=== PATIENT | male | born 1990 | race Caucasian/White ===

== ENCOUNTER 2019-12-22 09:16 | Inpatient (IN) | payer OTHER ==
[~2019-12-22] VITALS: Ht 177.8 cm; Wt 63.7 kg
[2019-12-22 09:22] VITALS: BP 152/108
[2019-12-22 09:47] LABS: HEMATOCRIT 44.7 % (42.0-52.0); HEMOGLOBIN 15.7 gm/dL (14.0-18.0); MCH 31.6 pg (26.0-34.0); MCHC 35.1 g/dL (28.0-37.0); MCV 90.1 fL (80.0-100.0); PLATELET COUNT 196 thou/uL (150-400); RBC 4.97 mil/uL (4.50-6.00); RDW 12.6 % (10.5-14.5)
[2019-12-22 10:23] LABS: ANION GAP 12 mmol/L (7-16); BUN 19 mg/dL (7-18); CALCIUM 9.1 mg/dL (8.5-10.1); CHLORIDE 102 mmol/L (98-107); CO2 26 mmol/L (21-32); GLUCOSE 103 mg/dL (74-106); POTASSIUM 4.2 mmol/L (3.5-5.1); SODIUM 140 mmol/L (136-145)
[2019-12-22 10:31] LABS: TROPONIN-I <0.06 ng/mL (<0.06)
[2019-12-22 13:09] LABS: ABSOLUTE NEUTROPHILS 2.8 thou/uL (1.4-8.2)
[2019-12-22 14:30] VITALS: BP 152/108
--- NOTE | 2019-12-22 14:49 | NUR ---
ATTEMPTED TO CALL REPORT, DANIEL STATES SHE DOES NOT HAVE AVAILABLE NURSES AND WILL CB TO GET REPORT ON PT
[2019-12-22 14:52] VITALS: BP 130/91
--- NOTE | 2019-12-22 15:18 | NUR ---
CALLED TO GIVE REPORT AGAIN SINCE NO CB. KATY RAYMOND STATES SHE CANT TAKE REPORT BECAUSE SHE IS AT [place]UN[place] AND WILL HAVE TO CB IN 30 MINUTES. KATY RAWLS ADVISED ME TO JUST "TAKE PT. OVER AND GIVE BESIDE REPORT"
[2019-12-22 15:44] VITALS: BP 146/90
--- NOTE | 2019-12-22 18:41 | NUR ---
ASSUMMED PT CARE AT APPROXIMATELY 1545. PT A&O X4. ASSESSMENT CHARTED. FALL PRECAUTIONS IN PLACE. PT DENIES HAVING CHEST PAIN. PT DENIES HAVING SOB. PT STATED HE HAD PAIN AROUND CHEST TUBE AREA. PT RECEIVED ANALGESICS. PT STATED ANALGESICS HELPED RELIEVE PAIN. EDUCATED PT AND PT'S FAMILY ABOUT POC. PT AND PT'S FAMILY STATED UNDERSTANDING AND DENIED HAVING FURTHER CONCERNS. R CHEST TUBE INSERTION DRESSING C/D/I. PT COMFORTABLE IN BED. PT DENIES HAVING FURTHER CONCERNS.
[2019-12-22 19:46] VITALS: BP 141/87
[2019-12-22 23:38] VITALS: BP 123/77
[2019-12-23] VITALS (7 sets, daily range): BP systolic 123–151; BP diastolic 75–105
--- NOTE | 2019-12-23 05:20 | NUR ---
ASSUMED PT CARE AT AROUND 1930, PT IS AWAKE, ALERT AND ORIENTEDX4, SR/SB ON THE MONITOR, DENIES CHEST PAIN OR SOB, C/O PAIN ON THE CHEST TUBE INSERTION SITE, PAIN MEDS GIVEN ORDERED, STATED PARTIAL RELIEF, CHEST TUBE SITE CDI, STATES BREATHING BETTER, ASSESSMENTS CHARTED, NO ISSUES OR ACUTE DISTRESS NOTED, WILL CONTINUE TO MONITOR
--- NOTE | 2019-12-23 07:55 | EKG ---
[facility] [place] [address] [address] ELECTROCARDIOGRAM REPORT Name: CHAD GARCIA Room #: 211-P ADM IN M.R.#: [id number] Admission: 12/22/19 Attend Phys: Rito Brambila Discharge: Date of : 89 Report #: [id number] THIS REPORT FOR: cc: CLARA - No family physician/PCP FAM - No family physician/PCP Gui Zapata MD [facility] ~ THIS REPORT FOR: //name// [facility] ED Test Date: 2019-12-22 Test Time: 09:23:40 Pat Name: CHAD GARCIA Department: Room: 211 Gender: M Vp Rheumatology: JUS GARCIA : 1990 Requested By: Rossana Marquez Order Number: [id number] MD: Gui Zapata Measurements Intervals [place] Rate: 77 P: 86 NH: 128 QRS: 88 QRSD: 89 T: 78 QT: 364 QTc: 412 Interpretive Statements Sinus rhythm Normal tracing No previous ECG available for comparison Electronically Signed On 12-23-2019 7:55:31 CDT by Gui Zapata [email or web address] <ELECTRONICALLY SIGNED> By: Gui Zapata MD, FACC 12/23/19 0755 0923 Gui Zapata MD, [facility] /EPI
--- NOTE | 2019-12-23 08:47 | NUR ---
ASSUMED CARE OF PT AT SHIFT CHANGE, CXR DONE THIS A.M. PT IS A&0X4, SBA, ENCOURAGED TO CONTINUE TO DO DEEP SLOW BREATHING IN SPITE OF PAIN, WILL CONTINUE TO MONITOR, ENCOURAGED TO USE CALL LIGHT FOR ANY NEEDS. USES URINAL FOR CONVENIENCE. WILL CONTINUE TO MONITOR
--- NOTE | 2019-12-23 10:37 | NUR ---
Chart reviewed and case discussed with the care team. Pt was indep and working prior to admission. Pt works for a [employer]. He has insurance on file for f/u care. He lives with his and children. No cm interventions indicated at this time. Pt is being treated for a pneumothorax and has a chest tube in place. Will remain available should dc needs arise.
[2019-12-24 05:06] VITALS: BP 145/88
--- NOTE | 2019-12-24 07:37 | NUR ---
ASSUMED PT CARE AT 1900, PT IS AWAKE, ALERT AND ORIENTED, SB ON THE MONITOR, CHEST TUBE SITE CDI, DENIES SOA OR CHEST PAIN, NO ACUTE DISTRESS NOTED, PASSED ON REPORT TO DAY NURSE
[2019-12-24 08:10] VITALS: BP 145/95
--- NOTE | 2019-12-24 08:43 | NUR ---
ASSUMED CARE OF PT AT SHIFT CHANGE; ONLY CONCERN AT THIS TIME IS PAIN CONTROL, HAD JONES OVERNIGHT, REMINDED OF PAIN MEDS SIDE EFFECTS, ASKED FOR TYLENOL. ANTICIPATING SPOUSE TO VISIT AGAIN. CT SITE REMAINS INTACT AND ASPIRATING CONTENTS, SAME AMT, BLOOD TINGED (PHYSICIANS AWARE), SEE SEPARATE INTERENTIONS FOR ASSESSMENTS, ENCOURAGED PT AND, LATER, HIS SPOUSE TO USE CALL LIGHT FOR ANY NEEDS
[2019-12-24 16:00] VITALS: BP 127/68
[2019-12-24 20:00] VITALS: BP 139/92
[2019-12-25 02:55] VITALS: BP 119/79
--- NOTE | 2019-12-25 03:57 | NUR ---
ASSUMED PT CARE AT AROUND 1900, PT IS AWAKE, ALERT AND ORIENTEDX4, SR ON THE MONITOR, ASESSMENTS CHARTED, CHEST TUBE SITE DRESSING REINFORCED, C/O PAIN ON HIS CHEST TUBE SITE, PAIN MEDICINE GIVEN WITH RELIEF, RESTED WELL THROUGH THE NIGHT, NO ACUTE DISTRESS NOTED, WILL CONTINUE TO MONITOR
[2019-12-25 08:15] VITALS: BP 132/83
--- NOTE | 2019-12-25 09:36 | NUR ---
ASSUMED CARE OF PT AT SHIFT CHANGE, A&0X4, AMB STEADY AND CLOSE TO BED D/T CHEST TUBE AND SYSTEM. PHYSICIAN ASKED TO ENSURE LINES TAPED CLOSE TO PT, SURGERY BEING CONSIDERED, CXR SHOWS LARGER AIR SPACE. ENCOURAGED PT TO USE CALL LIGHT FOR ANY NEEDS, NO OTHER NEEDS OTHER THAN PAIN CONTROL, DAILY BM. WILL CONTINUE TO MONITOR
[2019-12-25 11:30] VITALS: BP 126/92
[2019-12-25 15:45] VITALS: BP 132/83
[2019-12-25 19:50] VITALS: BP 134/89
--- NOTE | 2019-12-26 04:53 | NUR ---
ASSUMED CARE OF PATIENT AT 1900. AT ASSESSMENT PATIENT C/O PAIN AT CHEST TUBE INSERTION SITE. ADMINISTERED PRN MEDICATION ORDERED. PATIENT RESTED WELL THROUGH NOC. CHEST TUBE REMAINS IN PLACE. WILL CONTINUE TO MONITOR.
[2019-12-26 05:00] VITALS: BP 140/90
[2019-12-26 07:29] VITALS: BP 128/90
[2019-12-26 11:03] VITALS: BP 142/89
[2019-12-26 15:13] VITALS: BP 130/79
--- NOTE | 2019-12-26 19:02 | NUR ---
PT ALERT AND ORIENTED TIMES FOUR. VSS, 100%RA. RIGHT SIDE CHEST TIBE IN PLACE PT C/O PAIN PRN PAIN MEDS GIVEN WITH GOOD RELEIF. PT TOLERATES MEDS AND MEALS. PT UP AB MIGUEL IN ROOM WITH STEADY GAIT. PT NPO AFTER MIDNIGHT FOR SURGERY TOMORROW. PT AT BEDSIDE. WILL CONTINUE TO MONITOR.
[2019-12-26 20:39] VITALS: BP 134/93
[2019-12-27] VITALS (9 sets, daily range): BP systolic 120–142; BP diastolic 60–88
--- NOTE | 2019-12-27 04:05 | NUR ---
PT ARRIVED ON UNIT FROM 2N AT 0000. CHEST TUBE INTACT. PLAN FOR THORACENTESIS 12/26. INDEPENDENT TO BATHROOM. DENIES PAIN. RESTING COMFORTABLY. NO NEEDS VOICED. CALL LIGHT WITHIN REACH. FREQUENT OBSERVATION.
--- NOTE | 2019-12-27 11:58 | NUR ---
ON-GOING ASSESSMENT: CM REVIEWED CHART. PATIENT STILL HAS CHEST TUBE IN PLACE. PT HAD BRONCHOSCOPY. PT IS NORMALLY INDEPENDENT AT HOME. CM WILL CONTINUE TO FOLLOW TO ASSIST NEEDED.
--- NOTE | 2019-12-27 19:37 | NUR ---
Assumed care of pt at 0700. Pt a&ox4. Underwent surgery. Post-op pt admission order for M/S tele. No tele beds available. supervisor general and provider aware. Capnography monitor in place. Fentanyl COMMUNITY COORDINATOR. Family at bedside. Chest tube in place and connecting to suction. Call light within reach. Pt will transfer to telemetry floor. Report given to dary BURNS.
--- NOTE | 2019-12-28 02:54 | NUR ---
ASSUMED PT CARE AT 1900.PT WAS IN A STABLE CONDITION.LEAD DATA ENTRY OPERATOR PUMP IN PLACE WITH CAPNOGRAPHY.CHEST TUBE CONNECTED TO SUCTION.DRSG TO HIS RIGHT SIDE INTACT. PT WAS TRANSFERED TO A TELEMETRY UNIT(RM 458) AT 2144 WITH ALL HIS PERSONAL BELONGINGS.
[2019-12-28 04:02] VITALS: BP 137/79
--- NOTE | 2019-12-28 04:52 | NUR ---
Pt. rested quietly at intervals during the night when checked on during frequent rounds. Chest tube patent to suction. No c/o shortness of air. Capnography in place. Fentanyl customer support manager providing adequate pain control.
[2019-12-28 05:34] LABS: HEMATOCRIT 42.7 % (42.0-52.0); MCH 31.7 pg (26.0-34.0); MCV 90.5 fL (80.0-100.0); RBC 4.72 mil/uL (4.50-6.00); RDW 12.4 % (10.5-14.5); WBC 10.6 thou/uL (4.0-11.0)
[2019-12-28 05:42] LABS: CALCIUM 9.2 mg/dL (8.5-10.1); CREATININE 0.8 mg/dL (0.7-1.3); POTASSIUM 4.8 mmol/L (3.5-5.1)
[2019-12-28 07:18] VITALS: BP 122/79
--- NOTE | 2019-12-28 16:06 | PATH ---
[facility] [place] [address] PATHOLOGY RPT PROCEDURE Name: CHAD GARCIA Rodger Room #: 456-P ADM IN M.R.#: [id number] Admission: 12/22/19 Date of : 89 Discharge: Report #: [id number] Path Case #: [id number] [facility] Accession Number: [id number] . 01 Material submitted: . PART A: lung - RIGHT LOWER LOBE SUPERIOR SEGMENT. Modifiers: right, lower PART B: lung - RIGHT UPPER LOBE APEX. Modifiers: right, upper . 01 Clinical history: . RIGHT PNEUMOTHORAX SPONTANEOUS PHEUMOTHROAX . 02 Diagnosis: A. Lung, right lower lobe superior segment, wedge resection: - Marked emphysematous changes along with hemorrhage, history of pneumothorax. - Pleural surface showing dense acute and chronic inflammation along with reactive changes. . B. Lung, right upper lobe apex, wedge resection: - Marked emphysematous changes along with hemorrhage, history of pneumothorax. - A 5 mm bleb present adjacent to congestion and hemorrhage. . (IUV:mml; 12/28/2019) QLM 12/28/2019 1332 Local . 02 Electronically signed: . Lashanda Alfred MD, Pathologist NPI- [id number] . 01 Gross description: . A. The specimen is received in formalin, labeled "Chad Garcia, right lower lobe superior segment". Received is a segment of pink-pavon lung tissue with a stapled margin of resection measuring 2.9 x 1.0 x 0.3 cm in greatest dimensions. The mariano are removed and the new margin is inked black. Sectioning reveals pink-pavon cut surfaces with a previously ruptured outpouching measuring 1.5 cm. The specimen is submitted entirely in cassette A1. . B. The specimen is received in formalin, labeled "Chad Garcia, right upper lobe apex". Received is a segment of pink-pavon lung tissue with a stapled margin of resection measuring 3.8 x 1.8 x 0.9 cm in greatest dimensions. The mariano are removed and the new margin is inked black. Sectioning reveals a cystic structure measuring 0.6 cm that is devoid of content. The remaining cut surfaces display a pink-pavon appearance. The specimen is submitted entirely in cassettes B1 [place] [address] PATHOLOGY RPT PROCEDURE Name: CHAD GARCIA Room #: 456-P ADM IN M.R.#: [id number] Admission: 12/22/19 Date of : 89 Discharge: Report #: [id number] Path Case #: [id number] (CAA; 12/27/2019) QAC/QAC 12/27/2019 1544 Local . 02 Pathologist provided ICD-10: R09.1, R04.89 . 02 CPT . 931027, 583995 Specimen Comment: A courtesy copy of this report has been sent to [phone] Specimen Comment: Report sent to Performed at: [address] [facility], [place] [id number] MD Kennedy Cuellar MD Phone: [phone] Performed at: [address] [id number] MD Lashanda Alfred MD Phone: [phone]
--- NOTE | 2019-12-28 18:23 | NUR ---
ASSUMED CARE AT 0700. PT IS ALERT AND ORIENTED. VSSA/1/2L O2. CAPNOGRAPHY AND TELE. CLAY PUDDLER PUMP INFUSING IN PIV. CHEST TUBE TO SUCTION. GI/ TOLERATING DIET. NO BM. ACCUCHECKS NORMAL. CLAY PUDDLER PUMP INFUSING IN PIV. EDUCATED TO CALL IF NEEDS ARISE. CALL LIGHT IN REACH. 1715- CHEST TUBE TO WATER SEAL. DC CLAY PUDDLER PUMP AND O2 CAPNOGRAPHY. NORCO GIVEN. WILL MONITOR
[2019-12-28 19:51] VITALS: BP 128/76
--- NOTE | 2019-12-29 06:00 | NUR ---
VSS-AFEBRILE. LUNGS CLEAR-DIMINSHED IN ALL VARELA BILATERALLY. CT TO WATER SEAL, SMALL AMOUNT OF BLOODY DRAINAGE FROM AROUND INSERTION SITE OF TUBE. PAIN WELL CONTROLLED WITH PO PAIN MEDICATIONS. CALLS APPROPRIATELY FOR ANY NEEDED ASSISTANCE.
[2019-12-29 07:26] VITALS: BP 112/69
--- NOTE | 2019-12-29 08:31 | NUR ---
Assumed patient care at 0715. Vital signs stable, LSCTA, ABD soft and non-tender, BS x's 4, Chest Tube is patent in right chest. Pain is controlled well with po Hydrocodone. Patient has a good appetite. He is pleasant and calm. Normal Saline is running at 50mL's per hour. Held blood pressure medication this am, as blood pressure was 112/69 at 0730. No Insulin needed, as Blood Sugar was 86 at 0820. Will continue to monitor.
--- NOTE | 2019-12-29 11:35 | NUR ---
Assess due to length of stay. Admit with spontaneous pneumothorax and has required chest tube placement. Pt voices appetite is good, often has outside foods brought in. No changes in wt. Low nutrition risk
[2019-12-29 15:09] VITALS: BP 124/77
[2019-12-29 20:15] VITALS: BP 137/89
--- NOTE | 2019-12-30 03:16 | NUR ---
VSS-AFEBRILE. C/O RIGHT POSTERIOR CHEST SORENESS THAT IS PARTIALLY RELIEVED WITH PO PAIN MEDICATION. EQUAL CHEST RISE, AND CLEAR LUNGS SOUNDS IN ALL LUNG VARELA BILATERALLY. OOB AD MIGUEL-STEADY ON FEET. REMAINS ON ROOM AIR WITH NO REPORTED SOA. CALLS APPROPRIATELY FOR ANY NEEDED ASSISTANCE.
[2019-12-30 07:38] VITALS: BP 133/89
--- NOTE | 2019-12-30 09:18 | NUR ---
Assumed patient care at 0715.Vital signs are stable, LSCTA, ABD soft and non-tender, BS x's 4. Patient's pain is partially controlled with Hydrocodone. Patient to Discharge this am. He verbalizes an understanding of all Discharge instructions.
[2019-12-30 09:23] VITALS: BP 133/89
--- NOTE | 2019-12-30 10:06 | NUR ---
cm notified by bedside nurse that pt is dc home today. home no needs.
[2019-12-30] MEDS ORDERED: AMLODIPINE BESY10 MG PO (10:23)
[2019-12-30] MEDS ORDERED: ACETAMINOPHEN325 M1 PO (10:23)
--- NOTE | 2019-12-30 15:47 | HC ---
[facility] [place] [address] [address] CONSULTATION Name: CHAD GARCIA Room #: 456-P [facility] IN M.R.#: [id number] Admission: 12/22/19 Attend Phys: Rito Brambila Discharge: 12/30/19 Date of : 89 Report #: [id number] THIS REPORT FOR: cc: CLARA - No family physician/PCP CLARA - No family physician/PCP Josue Jackson MD ~ CC: [facility] physician/PCP Rito Schulz DATE OF SERVICE: 12/24/2019 REFERRING PHYSICIAN: We were asked by Dr. Brambila to see this patient. HISTORY OF PRESENT ILLNESS: The patient is a 29-year-old with a spontaneous right pneumothorax. The patient was admitted on 12/22/2019 with acute onset of chest pain. The patient was found to have significant right pneumothorax and a catheter was placed by Radiology. There was reasonable resolution of the pneumothorax, but there has been a persistent air leak and our help has been requested. PAST MEDICAL HISTORY: The patient denies chronic disease. MEDICATIONS: The patient takes no medications at home. ALLERGIES: The patient denies allergies to any medication. SOCIAL HISTORY: The patient denies cigarette use, but he does dip snuff. He also does use alcohol. REVIEW OF SYSTEMS: CONSTITUTIONAL: Denies fever or chills. EYES: Denies vision problems. HEENT: Denies headache, sore throat. CARDIAC: Denies chest pain other than associated with the pneumothorax. RESPIRATORY: Denies shortness of breath other than associated with the pneumothorax. GASTROINTESTINAL: Denies nausea, vomiting, blood. GENITOURINARY: Denies urgency, frequency, blood. SKIN: Denies rash or infection. MUSCULOSKELETAL: Denies bone or joint pain. NEUROLOGIC: Denies motor or sensory dysfunction. ENDOCRINE: Denies goiter or tremor. PHYSICAL EXAMINATION: GENERAL: The patient is a thin, mildly asthenic, young man lying in bed without [facility] [address] [place] [address] CONSULTATION Name: CHAD GARCIA Room #: 456-P [facility] [id number] Admission: 12/22/19 Attend Phys: Rito Brambila Discharge: 12/30/19 Date of : 89 Report #: [id number] distress. VITAL SIGNS: Temperature 36.7, heart rate 64, respiratory rate 16, blood pressure 145/95. HEENT: No scleral icterus, no arcus. NECK: No mass, no bruit. CHEST: Clear bilaterally. HEART: Rhythm regular. ABDOMEN: Soft. EXTREMITIES: No clubbing, cyanosis, or edema. No evidence of bruising or bleeding. MUSCULOSKELETAL: No asymmetry or deformity. PSYCHIATRIC: Shows insight into problem and answers questions appropriately. He is oriented x 3. Chest tube is attached and there is air leak with cough. There is negative pressure indicating that the tube is indeed in the chest and there is no leak in the system, as far as I can ascertain. ASSESSMENT AND PLAN: I discussed a spontaneous pneumothorax with the patient. If the leak persists, then it likely requires surgical correction. Risks and details of a right video-assisted thoracoscopy were discussed. Options and alternatives were reviewed. We will try to arrange surgery for Friday if leak persists over the weekend. Thank you for the consult. <ELECTRONICALLY SIGNED> By: Josue Jackson MD 12/30/19 1547 1408 1447 Josue Jackson MD /nt
--- NOTE | 2019-12-30 15:47 | O ---
[facility] [address] [address] OPERATIVE REPORT Name: CHAD GARCIA Room #: 456-P [facility] IN M.R.#: [id number] Admission: 12/22/19 Attend Phys: Rito Brambila Discharge: 12/30/19 Date of : 89 Report #: [id number] THIS REPORT FOR: cc: CLARA - No family physician/PCP CLARA - No family physician/PCP Josue Jackson MD ~ CC: [facility] physician/PCP Rito Schulz DATE OF SERVICE: 12/27/2019 PREOPERATIVE DIAGNOSIS: Spontaneous pneumothorax with persistent air leak, clinically right. POSTOPERATIVE DIAGNOSIS: Spontaneous pneumothorax with persistent air leak, clinically right. OPERATION: Bronchoscopy, right video-assisted thoracoscopy, wedge resection of blebs x 2 and chemical pleurodesis. SURGEON: Josue Jackson MD. ANESTHESIA: General. INDICATIONS: The patient is a 29-year-old with spontaneous right pneumothorax treated with a chest tube. The patient has a persistent air leak despite good reexpansion of the lung. FINDINGS AND TECHNIQUE: After general anesthesia was established, flexible diagnostic bronchoscopy was performed. No endobronchial lesions were noted. A double lumen endotracheal tube was placed and the patient was positioned with right side up. Exposure was obtained through right video-assisted thoracoscopy ports. Blebs were found in the apex of the superior segment of the right lower lobe and in the apex of the upper lobe itself. Wedge resection was done with stapler to resect these areas. The rest of the lung was inspected and no other blebs were identified. The chest was filled with a certain amount of saline and the lung was reexpanded. No air leaks were seen. The chest was evacuated and then doxycycline solution was placed for pleural sclerosis. [facility] [address] [place] [address] OPERATIVE REPORT Name: CHAD GARCIA Room #: 456-P [facility] IN .R.#: [id number] Admission: 12/22/19 Attend Phys: Rito Brambila Discharge: 12/30/19 Date of : 89 Report #: [id number] A chest tube was placed through the lowest port and the other ports were closed in layers. The patient was taken to the recovery area in good condition having tolerated the procedure well. All counts reported as correct. <ELECTRONICALLY SIGNED> By: Josue Jackson MD 12/30/19 1547 1015 1054 Josue Jackson MD /nt
== END 2019-12-30 11:15 | disposition home or self-care (01) | DRG 165 ==
LOC: ER 09:16 → 2N 12:41 → EROBS 12:41 → 2N 15:30 → 4S 12-26 22:42 → 4W 12-27 21:33
PROVIDERS: Physician Assistant; Student in an Organized Health Care Education/Training Program; ADMIT Hospitalist; ATTEND Hospitalist
PROC: 0W9930Z Drainage of Right Pleural Cavity with Drainage Device, Percutaneous Approach (ICD-10-PCS; principal; 2019-12-22)
PROC: 0BT Respiratory System, Resection (ICD-10-PCS; 2019-12-27)
PROC: 0BTF4ZZ Resection of Right Lower Lung Lobe, Percutaneous Endoscopic Approach (ICD-10-PCS; 2019-12-27)
PROC: 0BJ08ZZ Inspection of Tracheobronchial Tree, Via Natural or Artificial Opening Endoscopic (ICD-10-PCS; 2019-12-27)
PROC: 3E0L3GC Introduction of Other Therapeutic Substance into Pleural Cavity, Percutaneous Approach (ICD-10-PCS; 2019-12-27)
DX: J93.11 Primary spontaneous pneumothorax (principal); I10 Essential (primary) hypertension; F12.90 Cannabis use, unspecified, uncomplicated; Z20.828 Contact with and (suspected) exposure to other viral communicable diseases; Z79.899 Other long term (current) drug therapy; J95.812 Postprocedural air leak
CPT/HCPCS: 10045; 10102; 10194; 50101; 50386; 50417; 50455; 50497; 50739; 50740; 52265; 54118; 56524; 56526; 56528; 62110; 62900; 65105